=== PATIENT | male | born 1950 | race Caucasian/White ===

== ENCOUNTER 2018-04-09 11:22 | Outpatient (CLI) | payer MEDICARE | END 2018-04-09 11:23 | disposition EMS.NT | LOC: EMS 11:22 | PROVIDERS: ATTEND Surgery | DX: Z04.1 Encounter for examination and observation following transport accident (principal); V43.52XA Car driver injured in collision with other type car in traffic accident, initial encounter; Y92.413 State road as the place of occurrence of the external cause ==

== ENCOUNTER 2018-07-18 20:00 | Outpatient (CLI) | payer OTHER, MEDICARE | END 2018-07-18 20:01 | disposition home or self-care (01) | LOC: LAB 20:00 | PROVIDERS: ATTEND Registered Nurse | DX: M79.662 Pain in left lower leg (principal); M79.89 Other specified soft tissue disorders | CPT/HCPCS: 36415; 85379 ==